=== PATIENT | female | born 1990 | race Two or more races ===

== ENCOUNTER 2017-11-11 02:21 | Inpatient (IN) | payer OTHER ==
[2017-11-11] VITALS (17 sets, daily range): BP systolic 92–129; BP diastolic 50–76
[~2017-11-11] VITALS: Ht 160 cm; Wt 76.4 kg
[2017-11-11 03:23] LABS: HEMATOCRIT 33.8 % (36.0-46.0); HEMOGLOBIN 11.9 G/DL (11.9-15.5); MCHC 35.2 G/DL (30.0-36.0); MCV 90.9 FL (83-99); PLATELET COUNT 201 K/uL (156-360); RBC DIS.WIDTH-CV 13.3 % (11.8-14.6); RED BLOOD COUNT 3.72 M/uL (3.80-5.20); WHITE BLOOD COUNT 8.2 K/uL (4.1-10.2)
[2017-11-11] MEDS ORDERED: MOTRIN800 MG PO (08:12)
[2017-11-12 07:30] VITALS: BP 108/59
== END 2017-11-12 15:55 | disposition home or self-care (01) | DRG 775 ==
LOC: LDRP-OP 02:21 → 2WEST 02:22 → LDRP-OP 12-24 08:54
PROVIDERS: Nurse Practitioner
PROC: 10907ZC Drainage of Amniotic Fluid, Therapeutic from Products of Conception, Via Natural or Artificial Opening (ICD-10-PCS; principal; 2017-11-11)
PROC: 10E0XZZ Delivery of Products of Conception, External Approach (ICD-10-PCS; principal; 2017-11-11)
PROC: 3E0S3BZ Introduction of Anesthetic Agent into Epidural Space, Percutaneous Approach (ICD-10-PCS; 2017-11-11)
PROC: 00HU33Z Insertion of Infusion Device into Spinal Canal, Percutaneous Approach (ICD-10-PCS; 2017-11-11)
DX: O76 Abnormality in fetal heart rate and rhythm complicating labor and delivery (principal); O69.81X1 Labor and delivery complicated by cord around neck, without compression, fetus 1; Z37.0 Single live birth; Z3A.38 38 weeks gestation of pregnancy; Z90.49 Acquired absence of other specified parts of digestive tract
CPT/HCPCS: 85027; C1755; J3010; J7120